=== PATIENT | female | born 1995 ===

== ENCOUNTER 2018-08-11 11:22 | Inpatient (IN) ==
[2018-08-11] MEDS ORDERED: CLINDAMYCIN INJ 900 MG in PREMIX 1 EACH IV ONE (11:34)
[2018-08-11] MEDS ORDERED: FAMOTIDINE 20 MG/2 ML VIAL IV ONE (11:34)
[2018-08-11] MEDS ORDERED: CITRIC ACID/SODIUM CITRATE 30 ML UDCUP PO ONE (11:34)
[2018-08-11] MEDS ORDERED: OXYTOCIN/LR 30 UNIT/1,000 ML BAG IV ONE (11:38)
[2018-08-11] MEDS ORDERED: OXYTOCIN 10 UNIT/ML VIAL IM ONE (11:38)
[2018-08-11] MEDS ORDERED: LACTATED RINGERS 1,000 ML IV ONE (11:38)
[2018-08-11] MEDS ORDERED: fentaNYL 100 MCG/2 ML VIAL ONE (11:41)
[2018-08-11] MEDS ORDERED: MORPHINE 10 MG/10 ML VIAL ONE (11:41)
[2018-08-11] MEDS ORDERED: PHENYLEPHRINE 1 MG/10 ML SYRINGE IV ONE (11:41)
[2018-08-11] MEDS ORDERED: BUPIVACAINE SPINAL 0.75% 2 ML AMP SPINAL ONE (11:42)
[2018-08-11] MEDS ORDERED: EPINEPHrine 1 MG/ML VIAL ONE (11:42)
[2018-08-11] MEDS ORDERED: DEXAMETHASONE 4 MG/1 ML VIAL ONE (11:42)
[2018-08-11] MEDS ORDERED: BUPIVACAINE 0.5% 50 ML VIAL ONE (11:42)
[2018-08-11] MEDS ORDERED: KETOROLAC 60 MG/2 ML VIAL IM ONE (11:42)
[2018-08-11] MEDS ORDERED: ONDANSETRON 4 MG/2 ML VIAL ONE (11:42)
[2018-08-11 12:00] LABS: Basophils % 0.3 % (0.0-0.8); Eosinophils % 0.6 % (0.00-10.9); Hematocrit 34.3 VOL% (35.7-47.0); Hemoglobin 11.6 GM/DL (12.0-16.0); Immature Granulocytes % 0.3 %; Lymphocytes % 19.4 % (21.3-54.2); Mean Corpuscular HGB Conc 33.8 GM/DL (32-36); Mean Corpuscular Volume 84.3 FL (87-102); Mean Platelet Volume 11.3 FL (9.6-12.0); Monocytes % 9.4 % (1.7-12.7); Platelet Count 114 T/CUMM (130-400); Red Blood Count 4.07 MC/CUMM (3.8-5.5); White Blood Count 6.8 T/CUMM (4-12)
[2018-08-11] MEDS ORDERED: LACTATED RINGERS 1,000 ML IV SCH (12:00)
[2018-08-11 12:01] LABS: Immature Granulocytes Absolute 0.02 #; Lymphocytes # 1.3 10*3/uL (1.4-4.0)
[2018-08-11 12:36] LABS: Alanine Aminotransferase 12 U/L (13-56); Albumin 2.4 G/DL (3.4-5.0); Alkaline Phosphatase 122 U/L (45-117); Aspartate Amino Transferase 13 U/L (0-37); Bilirubin,Total < 0.39 MG/DL (0.2-1.0); Blood Urea Nitrogen 7 MG/DL (7-18); Calcium 8.2 MG/DL (8.5-10.1); Glucose 67 MG/DL (74-106); Osmolality,Calculated 276.3 MOS/KG (273-304); Total Protein 6.6 G/DL (6.4-8.3)
[2018-08-11] MEDS ORDERED: miSOPROStol 200 MCG TABLET ONE (12:57)
[2018-08-11] MEDS ORDERED: METHYLERGONOVINE 0.2 MG/1 ML AMP ONE (12:58)
[2018-08-11] MEDS ORDERED: CARBOPROST TROMETHAMINE 250 MCG/ML AMP IM ONE (12:58)
[2018-08-11] MEDS ORDERED: TRANEXAMIC ACID 1,000 MG/10 ML VIAL ONE (12:58)
[2018-08-11 13:43] LABS: Apearance,Urine CLEAR (Clear); Bacteria,Urine Occasional /HPF (Few); Bilirubin,Urine Negative (Negative); Blood, Urine Negative (Negative); Glucose,Urine (UA) Negative (Negative); Ketones,Urine 5 mg/dL (Negative); Mucus,Urine Many /LPF (Occasional); Nitrite,Urine Negative (Negative); Protein,Urine Negative; RBC,Urine 2 /HPF (0-4); Squamous Epithelial Cell,Urine Occasional /HPF (0-10); Urine Color Yellow (Yellow); Urine Specific Gravity 1.021 (1.001-1.035); WBC,Urine 1 /HPF (0-6)
[2018-08-11 14:24] LABS: Cord Arterial Blood HCO3 20.1 MMOL/L
[2018-08-11 14:25] LABS: Cord Venous Blood HCO3 24.8 MMOL/L; Cord Venous Blood PCO2 44.1 MMHG; Cord Venous Blood PO2 26.5 MMHG
[2018-08-11] MEDS ORDERED: MAGNESIUM HYDROXIDE SUSP 30 ML UDCUP PO PRN (14:48)
[2018-08-11] MEDS ORDERED: OXYTOCIN/LR 20 UNIT/1,000 ML BAG IV ONE (14:48)
[2018-08-11] MEDS ORDERED: ONDANSETRON 4 MG/2 ML VIAL IV PRN (14:48)
[2018-08-11] MEDS ORDERED: ACETAMINOPHEN 325 MG TABLET PO PRN (14:48)
[2018-08-11] MEDS ORDERED: IBUPROFEN 800 MG TABLET PO PRN (14:48)
[2018-08-11] MEDS ORDERED: SIMETHICONE CHEW 80 MG TABLET PO PRN (14:48)
[2018-08-11] MEDS ORDERED: RHO(D) IMMUNE GLOBULIN 300 MCG SYRINGE IM ONE (14:48)
[2018-08-11] MEDS ORDERED: diphenhydrAMINE 50 MG/1 ML VIAL IV PRN (18:21)
[2018-08-11] MEDS: LACTATED RINGERS 1,000 ML IV SCH (19:34)
[2018-08-11] MEDS: KETOROLAC 30 MG/1 ML VIAL IV SCH (22:10)
[2018-08-11] MEDS: ceFAZolin 1,000 MG in SYRINGE 1 EACH IV SCH (22:12)
[2018-08-11] MEDS: DOCUSATE SODIUM 100 MG CAPSULE PO SCH (22:16)
[2018-08-11] MEDS: ACETAMINOPHEN 500 MG TABLET PO SCH (22:17)
[2018-08-12 00:59] LABS: Basophils % 0.1 % (0.0-0.8); Hematocrit 27.5 VOL% (35.7-47.0); Hemoglobin 9.1 GM/DL (12.0-16.0); Immature Granulocytes % 0.6 %; Immature Granulocytes Absolute 0.05 #; Lymphocytes % 12.1 % (21.3-54.2); Mean Corpuscular HGB Conc 33.1 GM/DL (32-36); Mean Corpuscular Volume 84.9 FL (87-102); Monocytes % 3.7 % (1.7-12.7); Neutrophils % 83.5 % (38.7-73.9); Platelet Count 103 T/CUMM (130-400); Red Blood Count 3.24 MC/CUMM (3.8-5.5); Red Cell Distribution Width 13.9 % (9.3-17.3); White Blood Count 8.2 T/CUMM (4-12)
[2018-08-12] MEDS: KETOROLAC 30 MG/1 ML VIAL IV SCH (03:34)
[2018-08-12] MEDS: LACTATED RINGERS 1,000 ML IV SCH (03:56)
[2018-08-12] MEDS: ceFAZolin 1,000 MG in SYRINGE 1 EACH IV SCH (05:38)
[2018-08-12] MEDS: ACETAMINOPHEN 500 MG TABLET PO SCH (05:41)
[2018-08-12 07:49] LABS: Basophils % 0.3 % (0.0-0.8); Hematocrit 25.7 VOL% (35.7-47.0); Hemoglobin 8.5 GM/DL (12.0-16.0); Immature Granulocytes % 0.6 %; Immature Granulocytes Absolute 0.04 #; Lymphocytes # 1.6 10*3/uL (1.4-4.0); Lymphocytes % 23.6 % (21.3-54.2); Mean Corpuscular HGB Conc 33.1 GM/DL (32-36); Mean Corpuscular Volume 84.8 FL (87-102); Mean Platelet Volume 10.9 FL (9.6-12.0); Monocytes % 9.1 % (1.7-12.7); Neutrophils % 66.4 % (38.7-73.9); Platelet Count 108 T/CUMM (130-400); Red Blood Count 3.03 MC/CUMM (3.8-5.5); Red Cell Distribution Width 13.9 % (9.3-17.3); White Blood Count 6.6 T/CUMM (4-12)
[2018-08-12] MEDS: MULTIVITAMIN (PRENATAL) TABLET PO SCH (09:26)
[2018-08-12] MEDS: DOCUSATE SODIUM 100 MG CAPSULE PO SCH ×2 (09:27→21:17)
[2018-08-12] MEDS: FERROUS SULFATE 325 MG TABLET PO SCH ×2 (09:27→21:17)
[2018-08-12] MEDS: SERTRALINE 50 MG TABLET PO SCH (10:36)
[2018-08-12] MEDS ORDERED: METOCLOPRAMIDE 10 MG TABLET ONE (16:31)
[2018-08-12] MEDS: METOCLOPRAMIDE 10 MG TABLET PO SCH ×2 (16:36→23:39)
[2018-08-13 07:25] VITALS: BP 125/70
[2018-08-13] MEDS: FERROUS SULFATE 325 MG TABLET PO SCH (07:38)
[2018-08-13] MEDS: DOCUSATE SODIUM 100 MG CAPSULE PO SCH (07:38)
[2018-08-13] MEDS: MULTIVITAMIN (PRENATAL) TABLET PO SCH (07:39)
[2018-08-13] MEDS: METOCLOPRAMIDE 10 MG TABLET PO SCH (07:41)
[2018-08-13] MEDS: SERTRALINE 50 MG TABLET PO SCH (07:42)
== END 2018-08-13 12:20 | disposition home or self-care (01) | DRG 540 ==
LOC: N.LDOUT 11:22 → N.LD 11:24 → N.OB 20:49
PROVIDERS: ADMIT Obstetrics & Gynecology; ATTEND Obstetrics & Gynecology
PROC: LDCSECT (ICD-10-PCS; 2018-08-11 13:30)

== ENCOUNTER 2019-04-08 04:35 | Observation (INO) ==
[2019-04-08] MEDS ORDERED: SODIUM CHLORIDE 0.9% 500 ML IV STA (04:43)
[2019-04-08] MEDS ORDERED: ONDANSETRON 4 MG/2 ML VIAL IV STA (04:57)
[2019-04-08] MEDS ORDERED: MEPERIDINE 25 MG/1 ML VIAL IV STA (04:57)
[2019-04-08 05:01] LABS: Basophils % 0.2 % (0.0-0.8); Eosinophils % 0.2 % (0.00-10.9); Hematocrit 33.2 VOL% (35.7-47.0); Hemoglobin 10.7 GM/DL (12.0-16.0); Immature Granulocytes % 0.6 %; Immature Granulocytes Absolute 0.08 #; Lymphocytes % 7.7 % (21.3-54.2); Mean Corpuscular HGB Conc 32.2 GM/DL (32-36); Mean Corpuscular Volume 80.4 FL (87-102); Mean Platelet Volume 10.3 FL (9.6-12.0); Monocytes % 3.2 % (1.7-12.7); Neutrophils % 88.1 % (38.7-73.9); PT Patient Result 10.8 SECS (9.6-12.2); Platelet Count 173 T/CUMM (130-400); Red Blood Count 4.13 MC/CUMM (3.8-5.5)
[2019-04-08 05:31] LABS: Albumin 2.8 G/DL (3.4-5.0); Bilirubin,Total 0.5 MG/DL (0.2-1.0); Calcium 8.3 MG/DL (8.5-10.1); Osmolality,Calculated 270.8 MOS/KG (273-304); Total Protein 7.4 G/DL (6.4-8.3)
[2019-04-08] MEDS ORDERED: CLINDAMYCIN INJ 900 MG in PREMIX 1 EACH IV STA (07:00)
[2019-04-08] MEDS ORDERED: LACTATED RINGERS 1,000 ML IV SCH (09:00)
[2019-04-08] MEDS ORDERED: TISSUE ADHESIVE 1 EACH APPLICATOR TOP ONE (09:07)
[2019-04-08] MEDS ORDERED: LIDOCAINE 1%/EPI INJ 20 ML VIAL ONE (09:07)
[2019-04-08] MEDS ORDERED: BUPIVACAINE MPF 0.25% 30 ML VIAL ONE (09:07)
[2019-04-08] MEDS ORDERED: MORPHINE 4 MG/1 ML VIAL IV PRN (10:19)
[2019-04-08] MEDS ORDERED: ONDANSETRON 4 MG/2 ML VIAL IV PRN (10:19)
[2019-04-08] MEDS ORDERED: SEVOFLURANE 1 UNIT/15 MINUTE INH ONE (10:31)
[2019-04-08] MEDS ORDERED: propofoL 200 MG/20 ML VIAL IV ONE (10:31)
[2019-04-08] MEDS ORDERED: LIDOCAINE 2% 5 ML VIAL ONE (10:31)
[2019-04-08] MEDS ORDERED: fentaNYL 100 MCG/2 ML VIAL ONE (10:32)
[2019-04-08] MEDS ORDERED: ROCURONIUM 100 MG/10 ML VIAL IV ONE (10:32)
[2019-04-08] MEDS ORDERED: PHENYLEPHRINE 1 MG/10 ML SYRINGE IV ONE (10:32)
[2019-04-08] MEDS ORDERED: SUCCINYLCHOLINE 200 MG/10 ML VIAL ONE (10:32)
[2019-04-08] MEDS: CLINDAMYCIN INJ 900 MG in PREMIX 1 EACH IV SCH (16:13)
[2019-04-09] MEDS: CLINDAMYCIN INJ 900 MG in PREMIX 1 EACH IV SCH (00:15)
[2019-04-09 08:16] VITALS: BP 104/58
== END 2019-04-09 13:50 | disposition home or self-care (01) ==
LOC: EDUNIT# → EDBD → N.ED 04:35 → N.EDINP 04:35 → N.OB 08:17
PROVIDERS: ADMIT Surgery; ATTEND Surgery

== ENCOUNTER 2019-09-17 06:21 | Inpatient (IN) ==
[2019-09-17] MEDS ORDERED: CLINDAMYCIN INJ 900 MG in PREMIX 1 EACH IV ONE (08:01)
[2019-09-17] MEDS ORDERED: OXYTOCIN/LR 30 UNIT/1,000 ML BAG IV ONE (08:05)
[2019-09-17] MEDS ORDERED: OXYTOCIN 10 UNIT/ML VIAL IM ONE (08:05)
[2019-09-17 08:24] LABS: Basophils % 0.4 % (0.0-0.8); Eosinophils # 0.1 10*3/uL (0.0-0.87); Eosinophils % 0.7 % (0.00-10.9); Hematocrit 36.8 VOL% (35.7-47.0); Hemoglobin 12.2 GM/DL (12.0-16.0); Immature Granulocytes % 0.6 %; Immature Granulocytes Absolute 0.04 #; Lymphocytes # 1.7 10*3/uL (1.4-4.0); Lymphocytes % 23.1 % (21.3-54.2); Mean Corpuscular HGB Conc 33.2 GM/DL (32-36); Mean Corpuscular Volume 86.2 FL (87-102); Mean Platelet Volume 11.2 FL (9.6-12.0); Monocytes % 7.2 % (1.7-12.7); Platelet Count 139 T/CUMM (130-400); Red Blood Count 4.27 MC/CUMM (3.8-5.5); Red Cell Distribution Width 13.2 % (9.3-17.3); White Blood Count 7.1 T/CUMM (4-12)
[2019-09-17] MEDS ORDERED: LACTATED RINGERS 1,000 ML IV SCH ×2 (08:30→11:30)
[2019-09-17 08:40] LABS: Hypochromasia 1+
[2019-09-17 08:41] LABS: Microcytosis 1+
[2019-09-17 08:55] LABS: Alanine Aminotransferase 11 U/L (13-56); Albumin 2.7 G/DL (3.4-5.0); Alkaline Phosphatase 126 U/L (45-117); Aspartate Amino Transferase 12 U/L (0-37); Bilirubin,Total < 0.39 MG/DL (0.2-1.0); Blood Urea Nitrogen 7 MG/DL (7-18); Calcium 8.6 MG/DL (8.5-10.1); Estimated Glom Filtration Rate 150 ML/MIN; Glucose 67 MG/DL (74-106); Osmolality,Calculated 272.5 MOS/KG (273-304); Total Protein 7.2 G/DL (6.4-8.3)
[2019-09-17] MEDS ORDERED: DEXAMETHASONE 4 MG/1 ML VIAL ONE (09:30)
[2019-09-17] MEDS ORDERED: BUPIVACAINE MPF 0.25% 30 ML VIAL ONE (09:30)
[2019-09-17] MEDS ORDERED: EPINEPHrine 1 MG/ML VIAL ONE (09:30)
[2019-09-17] MEDS ORDERED: FAMOTIDINE 20 MG/2 ML VIAL IV ONE (09:51)
[2019-09-17] MEDS ORDERED: CITRIC ACID/SODIUM CITRATE 30 ML UDCUP PO ONE (09:51)
[2019-09-17] MEDS ORDERED: CITRIC ACID/SODIUM CITRATE 30 ML UDCUP ONE (09:58)
[2019-09-17 11:10] LABS: Cord Arterial Blood HCO3 22.7 MMOL/L
[2019-09-17 11:16] LABS: Apearance,Urine CLEAR (Clear); Bilirubin,Urine Negative (Negative); Blood, Urine Negative (Negative); Glucose,Urine (UA) Negative (Negative); Ketones,Urine 5 mg/dL (Negative); Mucus,Urine Occasional /LPF (Occasional); Nitrite,Urine Negative (Negative); Protein,Urine Negative; RBC,Urine <1 /HPF (0-4); Squamous Epithelial Cell,Urine Occasional /HPF (0-10); Urine Color Yellow (Yellow); Urine Specific Gravity 1.011 (1.001-1.035); Urine Urobilinogen < 2.0 EU/DL (0.2-1.0); WBC,Urine <1 /HPF (0-6)
[2019-09-17] MEDS ORDERED: RHO(D) IMMUNE GLOBULIN 300 MCG SYRINGE IM ONE (11:26)
[2019-09-17] MEDS ORDERED: ONDANSETRON 4 MG/2 ML VIAL IV PRN (11:26)
[2019-09-17] MEDS ORDERED: ACETAMINOPHEN 325 MG TABLET PO PRN (11:26)
[2019-09-17] MEDS ORDERED: OXYTOCIN/LR 20 UNIT/1,000 ML BAG IV ONE (11:26)
[2019-09-17] MEDS ORDERED: ceFAZolin 1,000 MG in SYRINGE 1 EACH IV SCH (11:30)
[2019-09-17] MEDS ORDERED: MORPHINE 10 MG/10 ML VIAL ONE (11:37)
[2019-09-17] MEDS ORDERED: fentaNYL 100 MCG/2 ML VIAL ONE (11:38)
[2019-09-17] MEDS ORDERED: PHENYLEPHRINE 1 MG/10 ML SYRINGE IV ONE (11:39)
[2019-09-17] MEDS ORDERED: BUPIVACAINE SPINAL 0.75% 2 ML AMP SPINAL ONE (11:39)
[2019-09-17 18:14] LABS: Basophils % 0.2 % (0.0-0.8); Hematocrit 34.6 VOL% (35.7-47.0); Hemoglobin 11.4 GM/DL (12.0-16.0); Immature Granulocytes % 0.3 %; Immature Granulocytes Absolute 0.03 #; Lymphocytes # 0.7 10*3/uL (1.4-4.0); Lymphocytes % 5.7 % (21.3-54.2); Mean Corpuscular HGB Conc 32.9 GM/DL (32-36); Mean Corpuscular Volume 85.4 FL (87-102); Monocytes % 3.1 % (1.7-12.7); Neutrophils % 90.7 % (38.7-73.9); Platelet Count 134 T/CUMM (130-400); Red Blood Count 4.05 MC/CUMM (3.8-5.5); Red Cell Distribution Width 13.2 % (9.3-17.3); White Blood Count 11.5 T/CUMM (4-12)
[2019-09-17 18:39] LABS: Anisocytosis 1+; Lymphocytes 3 % (20-55); Macrocytosis Slight; Microcytosis 1+; Platelet Estimate Adequate; Polychromasia Slight; Segmented Neutrophils 93 % (50-85); Total Cells Counted 100
[2019-09-17] MEDS: CLINDAMYCIN INJ 900 MG in PREMIX 1 EACH IV SCH (18:40)
[2019-09-17] MEDS: DOCUSATE SODIUM 100 MG CAPSULE PO SCH (20:34)
[2019-09-17] MEDS: IBUPROFEN 800 MG TABLET PO PRN (20:35)
[2019-09-18] MEDS: CLINDAMYCIN INJ 900 MG in PREMIX 1 EACH IV SCH (01:32)
[2019-09-18 06:00] LABS: Basophils % 0.3 % (0.0-0.8); Eosinophils % 0.1 % (0.00-10.9); Hematocrit 31.8 VOL% (35.7-47.0); Hemoglobin 10.8 GM/DL (12.0-16.0); Immature Granulocytes % 0.4 %; Immature Granulocytes Absolute 0.04 #; Lymphocytes # 2.1 10*3/uL (1.4-4.0); Lymphocytes % 20.3 % (21.3-54.2); Mean Platelet Volume 11.4 FL (9.6-12.0); Monocytes % 8.6 % (1.7-12.7); Neutrophils % 70.3 % (38.7-73.9); Platelet Count 130 T/CUMM (130-400); Red Blood Count 3.74 MC/CUMM (3.8-5.5); Red Cell Distribution Width 13.1 % (9.3-17.3); White Blood Count 10.4 T/CUMM (4-12)
[2019-09-18 06:31] LABS: Hypochromasia 1+; Microcytosis Slight
[2019-09-18 06:32] LABS: Platelet Estimate Adequate
[2019-09-18] MEDS: MULTIVITAMIN (PRENATAL) TABLET PO SCH (09:10)
[2019-09-18] MEDS: DOCUSATE SODIUM 100 MG CAPSULE PO SCH ×3 (09:10→23:18)
[2019-09-18] MEDS: MAGNESIUM HYDROXIDE SUSP 30 ML UDCUP PO PRN ×2 (09:10→19:15)
[2019-09-18] MEDS: SIMETHICONE CHEW 80 MG TABLET PO PRN ×2 (09:10→19:15)
[2019-09-18] MEDS ORDERED: METOCLOPRAMIDE 10 MG TABLET PO SCH (18:00)
[2019-09-18] MEDS: IBUPROFEN 800 MG TABLET PO PRN (19:14)
[2019-09-19] MEDS: DOCUSATE SODIUM 100 MG CAPSULE PO SCH (08:46)
[2019-09-19] MEDS: MULTIVITAMIN (PRENATAL) TABLET PO SCH (08:46)
[2019-09-19] MEDS ORDERED: DIPH/TET/ACEL PERT BOOSTER VACCINE 0.5 ML VIAL IM ONE (13:51)
[2019-09-19 14:48] VITALS: BP 126/70
== END 2019-09-19 14:25 | disposition home or self-care (01) | DRG 788 ==
LOC: N.LD 06:21 → N.OB 16:55
PROVIDERS: ADMIT Obstetrics & Gynecology; ATTEND Obstetrics & Gynecology
PROC: LDCSECT (ICD-10-PCS; 2019-09-17 08:15)

== ENCOUNTER 2020-09-13 10:09 | Inpatient (IN) ==
[2020-09-13] MEDS ORDERED: LACTATED RINGERS 1,000 ML IV SCH ×2 (10:30→18:30)
[2020-09-13] MEDS ORDERED: FAMOTIDINE 20 MG/2 ML VIAL IV ONE (10:30)
[2020-09-13] MEDS ORDERED: CITRIC ACID/SODIUM CITRATE 30 ML UDCUP PO ONE (10:30)
[2020-09-13] MEDS ORDERED: OXYTOCIN/LR 30 UNIT/1,000 ML BAG IV ONE (11:02)
[2020-09-13] MEDS ORDERED: OXYTOCIN 10 UNIT/ML VIAL IM ONE (11:02)
[2020-09-13 11:10] LABS: Basophils % 0.4 % (0.0-0.8); Eosinophils % 0.5 % (0.00-10.9); Hemoglobin 12.1 GM/DL (12.0-16.0); Immature Granulocytes % 0.2 %; Immature Granulocytes Absolute 0.01 #; Lymphocytes # 1.3 10*3/uL (1.4-4.0); Lymphocytes % 23.2 % (21.3-54.2); Mean Corpuscular HGB Conc 33.6 GM/DL (32-36); Mean Platelet Volume 11.2 FL (9.6-12.0); Monocytes % 6.8 % (1.7-12.7); Neutrophils % 68.9 % (38.7-73.9); Platelet Count 128 T/CUMM (130-400); Red Blood Count 4.39 MC/CUMM (3.8-5.5); Red Cell Distribution Width 13.5 % (9.3-17.3); White Blood Count 5.6 T/CUMM (4-12)
[2020-09-13 11:37] LABS: Alanine Aminotransferase 9 U/L (13-56); Albumin 2.6 G/DL (3.4-5.0); Alkaline Phosphatase 154 U/L (45-117); Aspartate Amino Transferase 15 U/L (0-37); Bilirubin,Total < 0.39 MG/DL (0.20-1.00); Blood Urea Nitrogen 10 MG/DL (7-18); Calcium 8.6 MG/DL (8.5-10.1); Carbon Dioxide 23 MMOL/L (21-32); Estimated Glom Filtration Rate 151 ML/MIN; Glucose 70 MG/DL (74-106); Osmolality,Calculated 269.8 MOS/KG (273-304); Potassium 3.5 MMOL/L (3.5-5.1); Sodium 137 MMOL/L (136-145); Total Protein 6.9 G/DL (6.4-8.2)
[2020-09-13] MEDS ORDERED: ceFAZolin 3,000 MG in SYRINGE 1 EACH IV ONE (11:42)
[2020-09-13] MEDS ORDERED: METHYLERGONOVINE 0.2 MG/1 ML AMP ONE (15:04)
[2020-09-13] MEDS ORDERED: TRANEXAMIC ACID 1,000 MG/10 ML VIAL ONE (15:04)
[2020-09-13] MEDS ORDERED: miSOPROStoL 200 MCG TABLET ONE (15:04)
[2020-09-13] MEDS ORDERED: OXYTOCIN/LR 20 UNIT/1,000 ML BAG IV ONE ×2 (15:04→18:24)
[2020-09-13] MEDS ORDERED: CARBOPROST TROMETHAMINE 250 MCG/ML AMP IM ONE (15:05)
[2020-09-13] MEDS ORDERED: SODIUM CHLORIDE 0.9% 0 ML IV ONE (15:05)
[2020-09-13 16:28] LABS: Bacteria,Urine Occasional /HPF (Few); Bilirubin,Urine Negative (Negative); Blood, Urine Negative (Negative); Glucose,Urine (UA) Negative (Negative); Ketones,Urine 20 mg/dL (Negative); Mucus,Urine Occasional /LPF (Occasional); Nitrite,Urine Negative (Negative); Protein,Urine Negative; RBC,Urine 1 /HPF (0-4); Squamous Epithelial Cell,Urine Occasional /HPF (0-10); Urine Appearance CLEAR (Clear); Urine Color Yellow (Yellow); Urine Specific Gravity 1.014 (1.001-1.035); Urine Urobilinogen < 2.0 EU/DL (0.2-1.0)
[2020-09-13] MEDS ORDERED: ONDANSETRON 4 MG/2 ML VIAL ONE (17:21)
[2020-09-13] MEDS ORDERED: BUPIVACAINE SPINAL 0.75% 2 ML AMP SPINAL ONE (17:21)
[2020-09-13] MEDS ORDERED: ACETAMINOPHEN INJ 1,000 MG/100 ML VIAL IV ONE (17:39)
[2020-09-13] MEDS ORDERED: PHENYLEPHRINE 1 MG/10 ML SYRINGE IV ONE (17:39)
[2020-09-13] MEDS ORDERED: KETOROLAC 30 MG/1 ML VIAL ONE (17:39)
[2020-09-13 18:10] LABS: Cord Arterial Blood HCO3 20.8 MMOL/L
[2020-09-13 18:13] LABS: Cord Venous Blood HCO3 21.4 MMOL/L; Cord Venous Blood PCO2 54.2 MMHG; Cord Venous Blood PO2 20.7
[2020-09-13] MEDS ORDERED: ACETAMINOPHEN 325 MG TABLET PO PRN (18:24)
[2020-09-13] MEDS ORDERED: DEXTROSE 50% 25 GM/50 ML VIAL IV PRN (18:24)
[2020-09-13] MEDS ORDERED: SIMETHICONE CHEW 80 MG TABLET PO PRN (18:24)
[2020-09-13] MEDS ORDERED: MAGNESIUM HYDROXIDE SUSP 30 ML UDCUP PO PRN (18:24)
[2020-09-13] MEDS ORDERED: IBUPROFEN 800 MG TABLET PO PRN (18:24)
[2020-09-13] MEDS ORDERED: ONDANSETRON 4 MG/2 ML VIAL IV PRN (18:24)
[2020-09-13] MEDS ORDERED: GLUCAGON 1 MG VIAL IM PRN (18:24)
[2020-09-13] MEDS ORDERED: RHO(D) IMMUNE GLOBULIN 300 MCG SYRINGE IM ONE (18:24)
[2020-09-13] MEDS: DOCUSATE SODIUM 100 MG CAPSULE PO SCH (22:51)
[2020-09-14] MEDS: ACETAMINOPHEN 500 MG TABLET PO SCH ×3 (00:05→11:31)
[2020-09-14] MEDS: KETOROLAC 30 MG/1 ML VIAL IV SCH ×3 (00:06→11:31)
[2020-09-14 02:00] LABS: Basophils % 0.4 % (0.0-0.8); Eosinophils % 0.3 % (0.00-10.9); Hematocrit 30.8 VOL% (35.7-47.0); Hemoglobin 10.3 GM/DL (12.0-16.0); Immature Granulocytes % 0.1 %; Immature Granulocytes Absolute 0.01 #; Lymphocytes # 1.5 10*3/uL (1.4-4.0); Lymphocytes % 20.8 % (21.3-54.2); Mean Corpuscular HGB Conc 33.4 GM/DL (32-36); Mean Corpuscular Volume 83.7 FL (87-102); Mean Platelet Volume 10.8 FL (9.6-12.0); Monocytes % 8.5 % (1.7-12.7); Neutrophils % 69.9 % (38.7-73.9); Platelet Count 102 T/CUMM (130-400); Red Blood Count 3.68 MC/CUMM (3.8-5.5); Red Cell Distribution Width 13.3 % (9.3-17.3); White Blood Count 7.3 T/CUMM (4-12)
[2020-09-14] MEDS: MAGNESIUM HYDROXIDE SUSP 30 ML UDCUP PO SCH ×2 (08:45→21:12)
[2020-09-14] MEDS: DOCUSATE SODIUM 100 MG CAPSULE PO SCH ×2 (08:45→21:06)
[2020-09-14] MEDS: METOCLOPRAMIDE 10 MG TABLET PO SCH ×2 (08:45→15:39)
[2020-09-14] MEDS: MULTIVITAMIN (PRENATAL) TABLET PO SCH (08:45)
[2020-09-14 10:04] LABS: Basophils % 0.3 % (0.0-0.8); Eosinophils % 0.7 % (0.00-10.9); Hematocrit 32.6 VOL% (35.7-47.0); Hemoglobin 10.9 GM/DL (12.0-16.0); Immature Granulocytes % 0.3 %; Immature Granulocytes Absolute 0.02 #; Lymphocytes # 1.2 10*3/uL (1.4-4.0); Lymphocytes % 18.8 % (21.3-54.2); Mean Corpuscular HGB Conc 33.4 GM/DL (32-36); Mean Corpuscular Volume 83.4 FL (87-102); Mean Platelet Volume 11.4 FL (9.6-12.0); Monocytes % 9.5 % (1.7-12.7); Neutrophils % 70.4 % (38.7-73.9); Platelet Count 116 T/CUMM (130-400); Red Blood Count 3.91 MC/CUMM (3.8-5.5); Red Cell Distribution Width 13.5 % (9.3-17.3); White Blood Count 6.1 T/CUMM (4-12)
[2020-09-14 10:24] LABS: Hypochromasia 1+; Microcytosis 1+; Platelet Estimate Decreased
[2020-09-15] MEDS ORDERED: IBUPROFEN 800 MG TABLET PO PRN (04:02)
[2020-09-15] MEDS ORDERED: MEASLES/MUMPS/RUBELLA VACCINE 0.5 ML VIAL SUBCUT ONE (09:00)
[2020-09-15] MEDS: MULTIVITAMIN (PRENATAL) TABLET PO SCH (09:15)
[2020-09-15] MEDS: DOCUSATE SODIUM 100 MG CAPSULE PO SCH (09:15)
[2020-09-15] MEDS: MAGNESIUM HYDROXIDE SUSP 30 ML UDCUP PO SCH (10:23)
[2020-09-15 11:58] VITALS: BP 126/75
== END 2020-09-15 15:15 | disposition home or self-care (01) | DRG 788 ==
LOC: N.LD 10:09 → N.OB 22:18
PROVIDERS: ADMIT Obstetrics & Gynecology; ATTEND Obstetrics & Gynecology
PROC: LDCSECT (ICD-10-PCS; 2020-09-13 10:00)